=== PATIENT | female | born 2000 | race Caucasian/White ===

== ENCOUNTER 2023-03-23 13:22 | Outpatient (CLI) | payer BC, SELFPAY | END 2023-03-23 13:23 | disposition home or self-care (01) | PROVIDERS: PCP Physician Assistant Medical; Visit Provider Physician Assistant Medical | DX: Z00.00 Encounter for general adult medical examination without abnormal findings (principal); E61.1 Iron deficiency | CPT/HCPCS: 82728; 82784; 84443; 86364 ==